=== PATIENT | male | born 1955 | race Caucasian/White ===

== ENCOUNTER 2024-06-27 11:46 | Emergency (ER) | payer OTHER ==
--- NOTE | 2024-06-27 12:11 | ED Physician Documentation ---
History of Present Illness - Stated complaint Stated Complaint: RT FLANK PX - History obtained from History obtained from: Patient - Additonal information Additional information: He has a history of A-fib and had an ablation in 2017. It sounds like he probably has not had A-fib at least that we know of since then. He was on Eliquis but had stopped it in 2 months ago developed pain similar to today's and was diagnosed eventually with a renal infarction and the pain just lasted that day. He has been back on Eliquis since but developed the same right flank pain today as he had 2 months ago when he had the renal infarction. It is quite severe. He had nausea with vomiting this morning. He tried to take Tylenol and Aleve but vomited it back up. He also has noted significantly elevated blood pressures today in the range of 180/100. PD PAST MEDICAL HISTORY - Present Medications Home Medications: Ambulatory Orders Medication Instructions Recorded Confirmed Apixaban [Eliquis] 1 tab PO BID #120 tablet 06/27/24 - Allergies Allergies/Adverse Reactions: Allergies Allergy/AdvReac Type Severity Reaction Status Date / Time gluten Allergy Unknown Verified 06/27/24 12:04 PD ED PE NORMAL - Vitals Vital signs reviewed: Yes - General General: Alert and oriented X 3, No acute distress - Cardiac Cardiac: RRR, No murmur - Respiratory Respiratory: No respiratory distress, Clear bilaterally - Abdomen Abdomen: Normal bowel sounds, Soft, Non tender - Neuro Neuro: Alert and oriented X 3, Normal speech Results - Vitals Vitals: Vital Signs - 24 hr 06/27/24 06/27/24 06/27/24 12:04 13:15 15:00 Temperature 36.5 C Heart Rate 45 L 46 L 49 L Respiratory 17 18 19 Rate Blood Pressure 202/118 H 186/104 H 167/97 H O2 Saturation 98 99 96 06/27/24 16:50 Temperature 36.7 C Heart Rate 53 L Respiratory 14 Rate Blood Pressure 175/90 H O2 Saturation 97 Oxygen O2 Source Room air - EKG (time done) 1225 EKG releavant findings:: EKG personally interpreted by author of this note. Relevant findings are: Rate: Rate (enter#) (40) Rhythm: Sinus bradycardia [place]: Normal Intervals: RBBB Ischemia: Non specific changes - Labs Labs: Laboratory Tests 06/27/24 06/27/24 06/27/24 12:30 12:30 15:41 WBC 8.8 RBC 4.68 L Hgb 14.2 Hct 43.0 MCV 91.9 MCH 30.3 MCHC 33.0 RDW 13.9 Plt Count 231 MPV 10.7 Neut # (Auto) 7.4 H Lymph # (Auto) 0.8 L [place] # (Auto) 0.6 Eos # (Auto) 0.0 Baso # (Auto) 0.0 Absolute Nucleated RBC 0.00 Nucleated RBC % 0.0 Sodium 135 Potassium 4.3 Chloride 105 Carbon Dioxide 24 Anion Gap 6.0 BUN 23 H Creatinine 1.5 H Estimated GFR (MDRD) 47 L Glucose 111 H Calcium 9.3 Total Bilirubin 0.8 AST 48 H ALT 32 Alkaline Phosphatase 47 Total Protein 6.8 Albumin 4.0 Globulin 2.8 Albumin/Globulin Ratio 1.4 Urine Color YELLOW Urine Clarity CLEAR Urine pH 5.5 Ur Specific [place] 1.020 Urine Protein 100 H Urine Glucose (UA) NEGATIVE Urine Ketones 15 H Urine Occult Blood NEGATIVE Urine Nitrite NEGATIVE Urine Bilirubin NEGATIVE Urine Urobilinogen 0.2 (NORMAL) Ur Leukocyte Esterase NEGATIVE Urine RBC 0-5 Urine WBC 0-3 Ur Squamous Epith Cells RARE Squamous Urine Bacteria Rare Ur Microscopic Review INDICATED Urine Culture Comments NOT INDICATED - Rads (name of study) CT A/P/Angio Relevant Findings:: Final report received, EMP independent interpretation of test PD Medical Decision Making - ED course ED course: 69-year-old gentleman with history of A-fib, not currently in A-fib and it is not clear if he has had A-fib in the last several years. He has a history of renal infarction and now has pain reminiscent of same. I did discuss with the radiologist onsite imaging who recommends both venous and arterial phase imaging for diagnosis and this is ordered. He is quite hypertensive here which according to my research on up-to-date can be a normal result of an acute renal infarction. On my initial "wet read" of his CT does look like he has a renal artery occlusion on the right. I went over and spoke with the radiologist who agreed that his right kidney is completely clotted off. He had had some pain medicat ion and now his pain was at a 1. His workup demonstrates a normal CBC with mild kidney injury of unclear acuity on his CMP. He is amenable to potentially being transferred for vascular surgery intervention if appropriate. He admitted to me that he is only been taking his Eliquis once a day, just the mornings, not the nights. I discussed with the pharmacist that we want to do therapeutic anticoagulation and we agreed would probably start heparin but without a bolus. I do not have factor Xa testing available onsite to titrate that with the Eliquis so we will just have to go based on PTTs. I did order a dose of hydralazine as well as has blood pressure has been persistently high with modest bradycardia is in the 40s and 50s. IMPRESSION: Infarcted right kidney. Right renal artery obstructing embolism versus dissection. Segmental areas of hypoattenuation in the left kidney also seen, probably sequela of segmental infarcts. Mild inflammatory fat stranding is seen around the gallbladder and a duodenal diverticulum. These are nonspecific and may represent incidental duodenal diverticulitis. No radiopaque gallstones. Also consider ultrasound if clinically indicated to evaluate the right upper quadrant. Cardiomegaly and biatrial enlargement. Initially patient was interested in going to [facility] and they were called after the CT. Subsequently they did not call back so the health community affairs manager called around, and contacted [facility], [facility], and [facility]. The first facility to call back with [facility] and I presented the case to their transfer center nurse at 3:33 PM. At approximately 4:15 PM I spoke with Dr. Juan Bardales, vascular surgeon at [facility] who reviewed his imaging. We discussed the case and he feels that given the length of time the patient has been in pain, there is no utility to transfer for any vascular intervention. He recommends anticoagulatio n and follow-up for hypercoagulable workup and cardiology evaluations. Prior to departure I did discuss case by phone with his primary care physician who agrees with current management and is planning on cardiology and hematology evaluations. Departure - Departure Disposition: 01 Home, Self Care Clinical Impression: Renal artery occlusion Condition: Serious Record reviewed to determine appropriate education?: Yes Prescriptions: Apixaban [Eliquis] 1 tab PO BID #120 tablet Comments: I sent a prescription Eliquis to the [facility] in [place]. You should definitely take it twice a day. Talk with your doctor about referrals for both hematology and cardiology follow-up. Return for new or worsening symptoms. You tell me that your physician has already sent pain medications to the [facility] in [place]. Forms: PCP List Discharge Date/Time: 06/27/24 17:05
[2024-06-27] MEDS: ONDANSETRON 4 MG/2 ML VIAL IVP STA (12:17)
[2024-06-27] MEDS: HYDROmorphone 1 MG/ML CARPUJECT IVP STA ×2 (12:17→14:20)
[2024-06-27] MEDS: SODIUM CHLORIDE 0.9% 1,000 ML IV STA (12:28)
[2024-06-27 12:42] LABS: BASOPHILS % (AUTO) 0.3 %; EOSINOPHILS % (AUTO) 0.2 %; HGB - HEMOGLOBIN 14.2 g/dL (14.0-18.0); LYMPHOCYTES # (AUTO) 0.8 10^3/uL (1.5-3.5); LYMPHOCYTES % (AUTO) 9.3 %; MEAN CORPUSCULAR HEMOGLOBIN 30.3 pg (27.0-31.0); MEAN CORPUSCULAR VOLUME 91.9 fL (80.0-94.0); MEAN PLATELET VOLUME 10.7 fL (7.4-11.4); MONOCYTES # (AUTO) 0.6 10^3/uL (0.0-1.0); MONOCYTES % (AUTO) 6.4 %; NEUTROPHILS # (AUTO) 7.4 10^3/uL (1.5-6.6); NEUTROPHILS % (AUTO) 83.6 %; PLT - PLATELET COUNT 231 10^3/uL (130-450); RED BLOOD COUNT 4.68 10^6/uL (4.70-6.10); RED CELL DISTRIBUTION WIDTH 13.9 % (12.0-15.0); WHITE BLOOD COUNT 8.8 x10^3/uL (4.8-10.8)
[2024-06-27 12:53] LABS: ALBUMIN/GLOBULIN RATIO 1.4 (1.0-2.2); BILIRUBIN,TOTAL 0.8 mg/dL (0.2-1.0); CALCIUM 9.3 mg/dL (8.5-10.3); CREATININE 1.5 mg/dL (0.6-1.3); POTASSIUM 4.3 mmol/L (3.5-4.5); TOTAL PROTEIN 6.8 g/dL (6.4-8.9)
[2024-06-27] MEDS ORDERED: iohexoL-300 100 ML VIAL ONE (13:17)
[2024-06-27] MEDS: iohexoL-300 100 ML VIAL IVP ONE (13:47)
[2024-06-27] MEDS: hydrALAZINE INJ 20 MG/ML VIAL IVP STA (14:03)
--- NOTE | 2024-06-27 14:09 | CT Report ---
PROCEDURE: Abdomen/Pelvis W INDICATIONS: R flank pain, suspect renal infarct, IV only CONTRAST: Omni 300 100ml TECHNIQUE: After the administration of intravenous contrast, a CT scan of the abdomen and pelvis was performed. Images were recorded and evaluated at appropriate window settings. Reformats: coronal and sagittal. F or radiation dose reduction, the following was used: automated exposure control, adjustment of mA and /or kV according to patient size. COMPARISON: None. FINDINGS: Image quality: Diagnostic Lower chest: Mild bibasilar scarring and atelectasis. Possible mild opacities are seen, along with br onchial wall thickening. No drainable effusions cardiomegaly. Coronary calcifications. Liver: Unremarkable Gallbladder and biliary system: Mild pericholecystic edema, nonspecific. No radiopaque gallstones. No t dilated biliary system Pancreas: No ductal dilation Spleen: Nonenlarged Adrenals: No discrete nodules Kidneys: Complete infarction of the right kidney. Abrupt cutoff contrast is seen on arterial phase in the right renal artery Wedge-shaped defects in the left kidney also seen, probably segmental infarcts. The left renal vein i s patent. There is poor contrast opacification the right renal artery. Vessels and lymph nodes: The main portal vein is patent. Renal findings as described above. No abdomi nal aortic aneurysm or pathologic lymph nodes by size criteria. Arterial phase. The other major mesen teric arteries are patent. Bowel and peritoneum: Mildly distended stomach. Nonspecific fat stranding is seen around the duodenum diverticulum. No drainable abscess. No pathologic ascites. Colonic diverticula are also seen. No sig ns of obstruction. The appendix is nondilated Body wall: Small fat-containing inguinal hernias. Small fat-containing umbilical hernia Pelvis: Bladder is underdistended and not well evaluated. Heterogeneous mildly enlarged prostate also not well eval on this study Bones: No acute or suspicious osseous finding. There are degenerative changes. IMPRESSION: Infarcted right kidney. Right renal artery obstructing embolism versus dissection. Segmental areas of hypoattenuation in the left kidney also seen, probably sequela segmental infarcts. Mild inflammatory fat stranding is seen around the gallbladder and a duodenal diverticulum. These are nonspecific and may represent incidental duodenal diverticulitis. No radiopaque gallstones. Also con technical business systems analyst ultrasound if clinically indicated to evaluate the right upper quadrant. Cardiomegaly and biatrial enlargement. Other findings above. (CTA and CT abdomen pelvis findings were read concurrently, this is an integrated report addressing f indings from both studies) Reviewed by: Junior Johnson MD on 06/27/2024 2:08 PM PDT Approved by: Junior Johnson MD on 06/27/2024 2:08 PM PDT Station ID: [id number]
--- NOTE | 2024-06-27 14:10 | CT Report ---
PROCEDURE: Abdomen/Pelvis W INDICATIONS: R flank pain, suspect renal infarct, IV only CONTRAST: Omni 300 100ml TECHNIQUE: After the administration of intravenous contrast, a CT scan of the abdomen and pelvis was performed. Images were recorded and evaluated at appropriate window settings. Reformats: coronal and sagittal. F or radiation dose reduction, the following was used: automated exposure control, adjustment of mA and /or kV according to patient size. COMPARISON: None. FINDINGS: Image quality: Diagnostic Lower chest: Mild bibasilar scarring and atelectasis. Possible mild opacities are seen, along with br onchial wall thickening. No drainable effusions cardiomegaly. Coronary calcifications. Liver: Unremarkable Gallbladder and biliary system: Mild pericholecystic edema, nonspecific. No radiopaque gallstones. No t dilated biliary system Pancreas: No ductal dilation Spleen: Nonenlarged Adrenals: No discrete nodules Kidneys: Complete infarction of the right kidney. Abrupt cutoff contrast is seen on arterial phase in the right renal artery Wedge-shaped defects in the left kidney also seen, probably segmental infarcts. The left renal vein i s patent. There is poor contrast opacification the right renal artery. Vessels and lymph nodes: The main portal vein is patent. Renal findings as described above. No abdomi nal aortic aneurysm or pathologic lymph nodes by size criteria. Arterial phase. The other major mesen teric arteries are patent. Bowel and peritoneum: Mildly distended stomach. Nonspecific fat stranding is seen around the duodenum diverticulum. No drainable abscess. No pathologic ascites. Colonic diverticula are also seen. No sig ns of obstruction. The appendix is nondilated Body wall: Small fat-containing inguinal hernias. Small fat-containing umbilical hernia Pelvis: Bladder is underdistended and not well evaluated. Heterogeneous mildly enlarged prostate also not well eval on this study Bones: No acute or suspicious osseous finding. There are degenerative changes. IMPRESSION: Infarcted right kidney. Right renal artery obstructing embolism versus dissection. Segmental areas of hypoattenuation in the left kidney also seen, probably sequela of segmental infarc ts. Mild inflammatory fat stranding is seen around the gallbladder and a duodenal diverticulum. These are nonspecific and may represent incidental duodenal diverticulitis. No radiopaque gallstones. Also con textile machinery instructor ultrasound if clinically indicated to evaluate the right upper quadrant. Cardiomegaly and biatrial enlargement. Other findings above. (CTA and CT abdomen pelvis findings were read concurrently, this is an integrated report addressing f indings from both studies) Reviewed by: Junior Johnson MD on 06/27/2024 2:08 PM PDT Approved by: Junior Johnson MD on 06/27/2024 2:08 PM PDT Station ID: [id number]
[2024-06-27] MEDS: HEPARIN 25000UNITS/500ML (D5W) 25,000 UNIT/500 ML BAG IV SCH (14:23)
[2024-06-27 15:45] LABS: BILIRUBIN,URINE NEGATIVE (NEGATIVE); GLUCOSE, URINE (UA) NEGATIVE (NEGATIVE); KETONES,URINE (UA) 15 mg/dL (NEGATIVE); LEUKOCYTE ESTERASE, URINE NEGATIVE (NEGATIVE); NITRITE,URINE NEGATIVE (NEGATIVE); OCCULT BLOOD,URINE NEGATIVE (NEGATIVE); PH,URINE 5.5 PH (5.0-7.5); PROTEIN,URINE 100 mg/dL (NEGATIVE); UROBILINOGEN,URINE 0.2 (NORMAL) E.U./dL (NORMAL)
[2024-06-27 15:47] LABS: CLARITY,URINE CLEAR (CLEAR)
[2024-06-27 15:54] LABS: BACTERIA,URINE Rare /HPF (None Seen); RBC,URINE 0-5 /HPF (0-5); SQUAMOUS EPITHELIAL CELL,UR RARE Squamous (<= Few); WBC,URINE 0-3 /HPF (0-3)
[2024-06-27 16:59] VITALS: BP 175/90; O2SAT 97
== END 2024-06-27 17:05 | disposition home or self-care (01) ==
LOC: ED 11:46
DX: N28.0 Ischemia and infarction of kidney (principal); I45.10 Unspecified right bundle-branch block; R11.2 Nausea with vomiting, unspecified
CPT/HCPCS: 36415; 74174; 74177; 80053; 81001; 85025; 93005; 96374; 96375; 96376; 99285; J1170; Q9967; 81003; 87086